=== PATIENT | male | born 1970 | race Caucasian/White ===

== ENCOUNTER 2023-03-29 23:11 | Emergency (ER) | payer MEDICAID ==
[~2023-03-29] VITALS: Ht 175.3 cm; Wt 91.0 kg
[2023-03-29 23:42] LABS: COVID AG,FIA SOURCE NASAL SWAB
[2023-03-29] MEDS ORDERED: IPRATROPIUM BROMIDE 0.5 MG/2.5 ML NEB SOLUTION NEB ONE (23:45)
[2023-03-29] MEDS ORDERED: ALBUTEROL SULFATE 2.5 MG/0.5 ML NEB SOLUTION NEB ONE (23:45)
[2023-03-29] MEDS ORDERED: MethylPREDNISolone SOD SUCC 125 MG/2 ML VIAL IVP ONE (23:45)
[2023-03-29 23:55] VITALS: PULSE 74; RESP 20; O2SAT 98
[2023-03-30 00:04] LABS: INFLUENZA TYPE A NEGATIVE FOR TYPE A (NEGATIVE); INFLUENZA TYPE B NEGATIVE FOR TYPE B (NEGATIVE); SARS-COV2 (COVID) ANTIGEN,FIA Negative (Negative)
[2023-03-30 00:05] LABS: RESPIRATORY SYNCYTIAL VIRS,FIA NEGATIVE (Negative)
[2023-03-30 00:05] LABS: HEMOGLOBIN 13.5 g/dL (13.5-17.5); MEAN CORPUSCULAR HEMOGLOBIN 29.5 pg (26.0-34.0); MONOCYTES # (AUTO) 0.8 K/uL (0.1-1.0); RED BLOOD CELL COUNT(AUTO) 4.57 MIL/uL (4.50-5.90); WHITE BLOOD COUNT (AUTO) 13.1 K/uL (4.5-11.0)
[2023-03-30 00:10] VITALS: PULSE 80; RESP 20; O2SAT 99
[2023-03-30 00:10] LABS: BASOPHILS % (AUTO) 1.5 % (0.0-2.0); LYMPHOCYTES # (AUTO) 2.6 K/uL (1.0-4.8); LYMPHOCYTES % (AUTO) 20.2 % (22.0-44.0); MEAN CORPUSCULAR HGB CONC 34.5 G/dL (31.0-37.0); MEAN CORPUSCULAR VOLUME 85 fL (80-100); MONOCYTES % (AUTO) 6.2 % (2.0-9.0); NEUTROPHILS # (AUTO) 7.3 K/uL (1.8-7.7); NEUTROPHILS % (AUTO) 55.6 % (40.0-70.0); PLATELET COUNT (AUTO) 166 K/uL (150-450); RED CELL DISTRIBUTION WIDTH 15.2 % (11.5-14.5)
[2023-03-30 00:14] LABS: ANION GAP 6 mmol/L (8-16); CALCIUM, TOTAL 9.2 mg/dL (8.8-10.5); CARBON DIOXIDE 27 mmol/L (22-29); CHLORIDE 104 mmol/L (98-107); CREATININE 1.38 mg/dL (0.60-1.30); GLOMERULAR FILTR. RATE CALC 54 mL/min (>60); GLUCOSE,RANDOM 108 mg/dL (70-110); POTASSIUM 3.7 mmol/L (3.5-5.1); SODIUM SERUM 137 mmol/L (136-145); UREA NITROGEN, BLOOD 25 mg/dL (7-18)
[2023-03-30 00:17] LABS: EOSINOPHILS % (AUTO) 16.5 % (1.0-6.0)
[2023-03-30 00:20] LABS: ALANINE AMINOTRANSFERASE 36 U/L (12-78); ALBUMIN 3.3 g/dL (3.4-5.0); ALKALINE PHOSPHATASE 75 U/L (46-116); ASPARTATE AMINOTRANSFERASE 22 U/L (15-37); BILIRUBIN,TOTAL 0.5 mg/dL (0.1-1.0); TOTAL PROTEIN, SERUM 6.9 g/dL (6.4-8.2)
[2023-03-30 00:22] LABS: TROPONIN I-HIGH SENSITIVITY 6 ng/L (<76)
[2023-03-30 00:27] LABS: B-TYPE NATRIURETIC PEPTIDE < 5 pg/mL (0-100)
[2023-03-30] MEDS ORDERED: SODIUM CHLORIDE 0.9% 1,000 ML IV ONE (01:15)
[2023-03-30] MEDS ORDERED: SODIUM CHLORIDE 0.9% 100 ML ONE (01:50)
[2023-03-30] MEDS ORDERED: IOHEXOL 350 MG/ML 100 ML VIAL ONE (01:50)
[2023-03-30] MEDS ORDERED: ALBU18HF12 IH (04:54)
[2023-03-30] MEDS ORDERED: PRED-554 PO (04:54)
[2023-03-30 04:59] VITALS: BP 137/75; PULSE 76; RESP 18; TEMP 98.4
[2023-03-30] MEDS ORDERED: DOXY-354 PO (05:02)
== END 2023-03-30 05:07 | disposition home or self-care (01) ==
LOC: EMS 23:14
DX: J45.909 Unspecified asthma, uncomplicated (principal); J18.9 Pneumonia, unspecified organism; Z20.822 Contact with and (suspected) exposure to COVID-19
CPT/HCPCS: 99291; 71045; 87426; 80053; 83880; 87420; 84484; 85025; 85379; 87804; 36415; 94640; 93005; 96374; 71275; 96361; J2930; Q9967; J7030; J7050; J7613

== ENCOUNTER 2023-09-02 09:18 | Emergency (ER) | payer MEDICAID, OTHER ==
[~2023-09-02] VITALS: Ht 175.3 cm; Wt 98.0 kg
[~2023-09-02 09:18] MED LIST: ALBU18HF12 IH; DOXY-354 PO; PRED-554 PO
[2023-09-02 09:21] VITALS: BP 112/58; PULSE 78; RESP 18; TEMP 97.8
== END 2023-09-02 10:20 | disposition left against medical advice (07) ==
LOC: EMS 09:18
DX: R06.02 Shortness of breath (principal); Z53.21 Procedure and treatment not carried out due to patient leaving prior to being seen by health care provider